=== PATIENT | female | born 1965 | race Caucasian/White ===

== ENCOUNTER 2018-02-03 10:10 | Outpatient (CLI) | payer BC ==
--- NOTE | 2018-02-03 14:08 | MRI ---
MRI OF THE CERVICAL SPINE WITHOUT CONTRAST: Date: 02/03/18 COMPARISON: None. HISTORY: Bilateral hand and finger tingling with numbness for months. TECHNIQUE: Multiplanar, multisequence MR imaging of the cervical spine obtained without contrast. 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 There is mild degenerative change at the atlantoaxia l interspace. The sagittal STIR imaging demonstrates mild increased signal intensity involving the anterior inferio r aspect of C4 vertebral body suggesting a mild degree of degenerative edema. There is no significant anterolisthesis or retrolisthesis. C2-3: There is mild disc space narrowing and anterior osteophyte formation. There is no evidence for signif icant central canal or neural foraminal stenosis. C3-4: There is mild facet and uncovertebral osteophyte formation on the left. There is disc space narrowing , degenerative end plate change, and anterior osteophyte formation. No significant central canal or n eural foraminal stenosis. C4-5: There is disc space narrowing and disc desiccation with anterior osteophyte formation. There is disc bulge with small superimposed central disc protrusion partially effacing the ventral thecal sac. No s ignificant central canal stenosis. There is facet and uncovertebral osteophyte formation bilaterally with no significant neural foraminal stenosis. C5-6: There is disc space narrowing and disc desiccation, anterior osteophyte formation, and disc bulge, wi th partial effacement of the ventral thecal sac and mild central canal stenosis. There is facet and u ncovertebral osteophyte formation bilaterally, especially on the left, with severe associated left ne ural foraminal stenosis and mild right neural foraminal stenosis. C6-7: There is bilateral facet hypertrophy, left greater than right. There is left uncovertebral osteophyte formation as well, with resultant mild/moderate left neural foraminal stenosis. No significant centr al canal or right neural foraminal stenosis. There is no focal area of signal abnormality identified within the cervical cord. IMPRESSION: Multilevel degenerative change noted within the cervical spine, most prominent at C4-5 and C5-6. This includes significant left-sided neural foraminal stenosis at the C5-6 level. POS: [facility]
== END 2018-02-03 10:11 | disposition home or self-care (01) ==
LOC: SCSMRI 10:10
PROVIDERS: ATTEND Psychiatry & Neurology Neurology
DX: M50.223 Other cervical disc displacement at C6-C7 level (principal); G43.109 Migraine with aura, not intractable, without status migrainosus; M47.892 Other spondylosis, cervical region; M99.81 Other biomechanical lesions of cervical region
CPT/HCPCS: 72141